=== PATIENT | male | born 1970 | race Caucasian/White ===

== ENCOUNTER 2018-02-18 18:52 | Emergency (ER) | payer OTHER ==
[~2018-02-18] VITALS: Ht 177.8 cm; Wt 78.5 kg
[~2018-02-18 18:52] MED LIST: CHANTIX1 EACH PO; CYCLOBENZAPRINE10 MG PO; KEFLEX500 MG PO; LYRICA150 MG PO; OXYCODONE HCL5 MG PO; VENTOLIN HFA18 GM INH
[2018-03-29] MEDS ORDERED: CYMBALTA20 MG PO (12:32)
== END 2018-02-18 19:47 | disposition home or self-care (01) ==
LOC: ED 18:52
DX: R13.10 Dysphagia, unspecified (principal); Z87.891 Personal history of nicotine dependence; Z88.5 Allergy status to narcotic agent; Z79.899 Other long term (current) drug therapy
CPT/HCPCS: 99282

== ENCOUNTER 2018-06-05 05:48 | Emergency (ER) | payer OTHER ==
[~2018-06-05] VITALS: Ht 177.8 cm; Wt 79.4 kg
[~2018-06-05 05:48] MED LIST changes: +CYMBALTA20 MG PO
== END 2018-06-05 07:20 | disposition home or self-care (01) ==
LOC: ED 05:48
DX: M54.2 Cervicalgia (principal); Z88.5 Allergy status to narcotic agent; Z79.899 Other long term (current) drug therapy
CPT/HCPCS: 72125; 96372; 99283; J1170

== ENCOUNTER 2019-08-23 17:37 | Emergency (ER) | payer OTHER ==
[~2019-08-23] VITALS: Ht 177.8 cm; Wt 79.4 kg
[~2019-08-23 17:37] MED LIST changes: +BELBUCA75 MCG TOP
--- OUTSIDE RECORDS SUMMARY | 2019-08-23 17:40 | XMS ---
PreManage Notification: KAEL DANIELS Security [employer] Events No recent Security Events currently on file CRITERIA MET - [facility] - 2 Visits in 30 Days CARE PROVIDERS OLGA WOODS Primary Care Current PHONE: Unknown [place] has no Care Guidelines for this patient. E.DCartachito VISIT COUNT (12 MO.) [address] [place] [address] TOTAL 2 NOTE: Visits indicate total known visits. ED/UCC VISIT TRACKING (12 MO.) 08/23/2019 17:37 [facility] [place] TYPE: Emergency COMPLAINT: - RIGHT HAND PAIN 08/21/2019 09:42 [facility] [place] TYPE: Emergency DIAGNOSES: - R HAND INJURY SARINA 08/21/19 - Nondisplaced fracture of base of fifth metacarpal bone, right hand, initial encounter for open fracture INPATIENT VISIT TRACKING (12 MO.) No inpatient visits to display in this time frame [email or web address]
== END 2019-08-23 18:11 | disposition home or self-care (01) ==
LOC: ED 17:37
DX: M79.641 Pain in right hand (principal)